=== PATIENT | female | born 1980 | race Caucasian/White ===

== ENCOUNTER 2022-03-21 17:26 | Emergency (ER) | payer BC, SELFPAY ==
[2022-03-21 17:40] VITALS: BP 115/78; PULSE 77; RESP 16; TEMP 37.4; O2SAT 99
--- NOTE | 2022-03-21 18:07 | ED.NAVMDI ---
HPI - Nausea/Vomiting/Diarrhea General Chief complaint: Nausea/Vomiting/Diarrhea Stated complaint: diarrhea, bloated, stomach cramps Time Seen by Provider: 03/21/22 17:40 Source: patient, RN notes reviewed and old records reviewed Mode of arrival: ambulatory Limitations: no limitations History of Present Illness HPI Narrative: 41-year-old female who presents to [facility] with complaints of 1-1/2 to 2 weeks duration of diarrhea abdominal cramping and bloating. Patient states yesterday she had a loose formed stool which was the last time she has stool. Patient denies any greenish or yellow seedy looking stools has been brown in color denies any blood noted. Patient reports no fevers chills or sweats, denies any urinary infection type of symptoms. MD elicited complaint: diarrhea and abdominal pain (cramping) Onset (ago): week(s) (1.5) Treatment prior to arrival: immodium Related Data Home Medications Medication Instructions Recorded Confirmed fluticasone propionate 50 1 spray intranasal BID 03/21/22 03/21/22 mcg/actuation nasal spray,suspension Allergies Allergy/AdvReac Type Severity Reaction Status Date / Time No Known Allergies Allergy Verified 03/21/22 17:49 Review of Systems Review of Systems: CONSTITUTIONAL: Denies fever, chills, or sweats. EYES: Denies visual changes, redness, or discharge. ENT: Denies rhinorrhea, congestion, sore throat, or otalgia. CARDIOVASCULAR: Denies chest pain, palpitations, or edema. RESPIRATORY: Denies cough or dyspnea. GASTROINTESTINAL: Denies abdominal pain, positive nausea, no vomiting, positive diarrhea. GENITOURINARY: Denies dysuria or hematuria. SKIN: Denies rash or itching. MUSCULOSKELETAL: Denies back pain, joint pain, or myalgia. NEUROLOGIC: Denies headache, numbness, or weakness. PSYCHIATRIC: Denies anxiety or depression. PMFSH Comments At time of signature, agree with nursing past medical, surgical, social and family history. There is no relevant family history pertinent to the presenting complaint Exam Narrative: GENERAL: Well-appearing, well-nourished, and in no acute distress. HEAD: Normocephalic, atraumatic. EYES: PERRLA and EOMI. ENT: Nares clear, no rhinorrhea or epistaxis. Mucous membranes moist. NECK: Supple. CHEST: Clear to auscultation. No respiratory distress. HEART: Regular rate and rhythm. No murmur heard. Normal peripheral pulses. ABDOMEN: Soft, nontender, nondistended, normal active bowel sounds. EXTREMITIES: Normal range of motion. No edema. SKIN: Warm, dry, no rash. NEURO: No focal deficits. Alert and oriented x3. Course Course Level of Care: Express Care Visit Vital Signs Vital signs: Vital Signs Temperature 37.4 C 03/21/22 17:40 Pulse Rate 77 03/21/22 17:40 Respiratory Rate 16 03/21/22 17:40 Blood Pressure 115/78 03/21/22 17:40 Pulse Oximetry 99 03/21/22 17:40 Oxygen Delivery Room Air 03/21/22 17:40 Temperature 37.4 C 03/21/22 17:40 Pulse Rate 77 03/21/22 17:40 Respiratory Rate 16 03/21/22 17:40 Blood Pressure 115/78 03/21/22 17:40 Pulse Oximetry 99 03/21/22 17:40 Oxygen Delivery Room Air 03/21/22 17:40 MDM - Nausea/Vomiting/Diarrhea Differential Diagnosis Differential diagnosis: Likely traveler's diarrhea, food poisoning, gastroenteritis, dehydration and other (Abdominal cramping) Medical Records Attestation: I reviewed the patient's medical records. Critical Care Time Critical Care Time Critical Care Time: No Discharge Plan Discharge Clinical Impression: Gastroenteritis Patient Disposition: Home, Self-Care Condition: Stable Instructions: Dehydration (ED), Clear Liquid Diet (ED), Acute Diarrhea (ED) Additional Instructions: Clear liquids for the next 8-10 hours, then advance to a bland diet as tolerated A bland diet can consist of--BRAT diet which is bananas, rice, applesauce, and toast Avoid fried, greasy, fatty, fried foods Avoid caffeine, nicotine, and alcohol
== END 2022-03-21 18:25 | disposition home or self-care (01) ==
PROVIDERS: Emergency Provider Registered Nurse
DX: K52.9 Noninfective gastroenteritis and colitis, unspecified (principal)
CPT/HCPCS: 99213; G0463